=== PATIENT | female | born 1945 | race Caucasian/White ===

== ENCOUNTER 2017-06-01 16:50 | Inpatient (IN) ==
[2017-06-02 04:54] LABS: Basophils # 0.1 K/mcL (0.0-0.2); Eosinophils # 0.3 K/mcL (0.0-0.6); Eosinophils % 3.9 %; Hematocrit 30.7 % (35.3-44.9); Hemoglobin 9.7 g/dL (11.5-15.4); Lymphocytes # 1.5 K/mcL (0.6-4.6); Lymphocytes % 18.5 %; Mean Corpuscular HGB Conc 31.6 g/dL (31.6-35.5); Mean Corpuscular Hemoglobin 25.5 pg (28.0-33.3); Mean Corpuscular Volume 80.8 fL (83.0-100.0); Mean Platelet Volume 10.5 fL (9.4-12.4); Monocytes # 0.8 K/mcL (0.0-1.3); Monocytes % 9.8 %; Neutrophils # 5.3 K/mcL (1.6-8.9); Platelet Count 288 K/mcL (140-400); Red Cell Distribution Width 15.6 % (11.5-14.5); Segmented Neutrophils % 65.8 %
[2017-06-02 04:55] LABS: INR 1.2; Prothrombin Time 12.9 Seconds (9.4-12.1)
[2017-06-02 04:58] LABS: Activated Partial Thrombo Time 25.3 Seconds (26.0-36.0)
[2017-06-02] MEDS: *HR* Enoxaparin 40 MG/0.4 ML SYRINGE SQ SCH (05:01)
[2017-06-02 05:04] LABS: BUN/Creatinine Ratio 23 (6-26); Blood Urea Nitrogen 19 mg/dL (7-20); Carbon Dioxide 24 mEq/L (19-29); Chloride 113 mEq/L (98-109); Glucose 106 mg/dL (70-99); Osmolality,Calculated 301 (280-300); Potassium 3.8 mEq/L (3.5-4.5); Sodium 144 mEq/L (136-145); eGFR For African Americans > 60 (> 60); eGFR For Non-African Americans > 60 (> 60)
[2017-06-02] MEDS: amLODIPine 5 MG TABLET PO SCH (07:56)
[2017-06-02] MEDS: Aspirin Enteric Coated 81 MG Tablet PO SCH (07:56)
[2017-06-02] MEDS: Lisinopril 20 MG TABLET PO SCH (07:57)
[2017-06-03] MEDS: *HR* Enoxaparin 40 MG/0.4 ML SYRINGE SQ SCH (05:10)
[2017-06-03] MEDS: Aspirin Enteric Coated 81 MG Tablet PO SCH (08:37)
[2017-06-03] MEDS: Lisinopril 20 MG TABLET PO SCH (08:37)
[2017-06-03] MEDS: amLODIPine 5 MG TABLET PO SCH (08:37)
--- NOTE | 2017-06-03 13:40 | Internal Med History&Physical ---
Date of Encounter: 06/02/17 Time of Encounter: 13:38 Assessment and Plan (1) Acute CVA (cerebrovascular accident) Current visit: No Status: Acute Internal Medicine - H&P: HPI Chief complaint: Patient had a CVA was transferred here for rehabilitation Admitted From: Hospital to Hospital Transfer Plans for Post Hospital Care: Transfer Detention Care History of present illness: Ms. Quick is a 72 year old female Past Med Surg Social Fam HX - Past Medical History Medical history: no medical history Psychiatric history: no psych history - Past Surgical History Surgical History: cholecystectomy, herniorrhaphy - Social History Smoking Status: Never smoker Smokeless Tobacco Status: No Alcohol use: none Drug use: none Internal Medicine - H&P: Meds Aspirin Enteric Coated [Aspirin EC] 81 mg PO DAILY 06/01/17 [Rx] Atorvastatin [Lipitor] 40 mg PO HS #30 tab 06/01/17 [Rx] Ciprofloxacin [Cipro] 500 mg PO Q12HR #6 tab 06/01/17 [Rx] Docusate [Colace] 100 mg PO BID PRN 06/01/17 [Rx] Lisinopril [Zestril] 20 mg PO DAILY #30 tablet 06/01/17 [Rx] amLODIPine [Norvasc] 10 mg PO DAILY #30 tab 06/01/17 [Rx] 3 Allergy/AdvReac Type Severity Reaction Status Date / Time No Known Allergies Allergy Verified 05/29/17 00:47 All Systems PM: A 10-system review of systems was performed and is negative for pertinent findings except as documented above in the HPI. - Constitutional Vitals: Temp Pulse Resp BP Pulse Ox 98.4 F 81 18 159/85 96 06/03/17 08:00 06/03/17 08:00 06/03/17 08:00 06/03/17 08:00 06/03/17 08:00 - Head Head exam: Present: atraumatic, normal inspection, normocephalic - Neck Neck exam general surgery: Present: supple, trachea midline. Absent: lymphadenopathy - Respiratory Respiratory exam: Present: CTAB. Absent: accessory muscle use, rales, rhonchi, wheezes - Cardiovascular Cardiovascular exam: Present: RRR, +S1, +S2. Absent: diastolic murmur, gallop, rubs, systolic murmur Internal Med - H&P Results - Labs CBC & Chem 7: 06/02/17 04:45 06/02/17 04:45 Labs: Lab was basically stable - VTE Documentation of Mechanical Device: Graduated compression elastic hosiery
--- NOTE | 2017-06-03 13:45 | Internal Med Progress Note ---
Date of Encounter: 06/03/17 Time of Encounter: 13:43 - Assessment and plan (1) Acute CVA (cerebrovascular accident) Current Visit: No Status: Acute Assessment and plan: Working with all modalities of PT OT TR and speech - Time Spent With Patient less than 15 minutes - Subjective Interval history: Asians here for consequences of a CVA rehabilitation. She has some trouble with slow response verbally and does not say very much and she does have some buttocks breakdown that her grandmother have wound care see today - Constitutional Vitals: Temp Pulse Resp BP Pulse Ox 98.4 F 81 18 159/85 96 06/03/17 08:00 06/03/17 08:00 06/03/17 08:00 06/03/17 08:00 06/03/17 08:00 - Head Head exam: Present: atraumatic, normocephalic - Neck Neck exam general surgery: Present: supple, trachea midline. Absent: lymphadenopathy - Respiratory Respiratory exam: Present: CTAB. Absent: accessory muscle use, rales, rhonchi, wheezes - Cardiovascular Cardiovascular exam: Present: RRR, +S1, +S2. Absent: diastolic murmur, gallop, rubs, systolic murmur Internal Medicine: Result - Labs CBC & Chem 7: 06/02/17 04:45 06/02/17 04:45 Labs: Lab noted - ABG Interpretation ABG results: PT/INR, D-dimer PT 12.9 Seconds (9.4-12.1) H 06/02/17 04:45 - VTE Documentation of Mechanical Device: Graduated compression elastic hosiery Consult Discharge Plan - Plan Referrals: NONE,PCP [Primary Care Provider] -
[2017-06-03] MEDS ORDERED: Diphenoxylate/Atropine 1 TAB TABLET PO SCH (21:00)
[2017-06-03] MEDS: Diphenoxylate/Atropine 1 TAB TABLET PO SCH (21:50)
[2017-06-04] MEDS: *HR* Enoxaparin 40 MG/0.4 ML SYRINGE SQ SCH (05:44)
[2017-06-04] MEDS: Diphenoxylate/Atropine 1 TAB TABLET PO SCH ×3 (10:19→20:24)
[2017-06-04] MEDS: Aspirin Enteric Coated 81 MG Tablet PO SCH (10:19)
[2017-06-04] MEDS: Lisinopril 20 MG TABLET PO SCH (10:19)
[2017-06-04] MEDS: amLODIPine 5 MG TABLET PO SCH (10:19)
--- NOTE | 2017-06-04 13:37 | Internal Med Progress Note ---
Date of Encounter: 06/04/17 Time of Encounter: 13:36 - Assessment and plan (1) Acute CVA (cerebrovascular accident) Current Visit: No Status: Acute Assessment and plan: Patient is here for CVA rehabilitation. - Time Spent With Patient less than 15 minutes - Subjective Interval history: Asians here for consequences of a CVA rehabilitation. She has some trouble with slow response verbally and does not say very much and she does have some buttocks breakdown that her grandmother have wound care see today - Constitutional Vitals: Temp Pulse Resp BP Pulse Ox 98.5 F 76 18 144/77 96 06/04/17 07:27 06/04/17 07:27 06/04/17 07:27 06/04/17 07:27 06/04/17 07:27 - Head Head exam: Present: atraumatic, normal inspection, normocephalic - Neck Neck exam general surgery: Present: supple, trachea midline. Absent: lymphadenopathy - Respiratory Respiratory exam: Present: CTAB. Absent: accessory muscle use, rales, rhonchi, wheezes - Cardiovascular Cardiovascular exam: Present: RRR, +S1, +S2. Absent: diastolic murmur, gallop, rubs, systolic murmur Internal Medicine: Result - Labs CBC & Chem 7: 06/02/17 04:45 06/02/17 04:45 Labs: Lab is stable - ABG Interpretation ABG results: PT/INR, D-dimer PT 12.9 Seconds (9.4-12.1) H 06/02/17 04:45 - VTE Documentation of Mechanical Device: Graduated compression elastic hosiery Consult Discharge Plan - Plan Referrals: NONE,PCP [Primary Care Provider] -
[2017-06-05] MEDS: *HR* Enoxaparin 40 MG/0.4 ML SYRINGE SQ SCH (06:08)
[2017-06-05] MEDS: Aspirin Enteric Coated 81 MG Tablet PO SCH (08:31)
[2017-06-05] MEDS: amLODIPine 5 MG TABLET PO SCH (08:31)
[2017-06-05] MEDS: Diphenoxylate/Atropine 1 TAB TABLET PO SCH ×3 (08:31→20:42)
[2017-06-05] MEDS: Lisinopril 20 MG TABLET PO SCH (08:31)
--- NOTE | 2017-06-05 08:40 | Internal Med Progress Note ---
Date of Encounter: 06/05/17 Time of Encounter: 08:37 - Assessment and plan (1) Acute CVA (cerebrovascular accident) Current Visit: No Status: Acute Assessment and plan: Rt hemispheric stroke Ischemic ,affecting left side, dysarthia , Stable IN rehab (2) UTI (urinary tract infection) Current Visit: No Status: Acute Assessment and plan: on cipro continue present medications Qualifiers: Urinary tract infection type: acute cystitis Hematuria presence: with hematuria Qualified Code(s): N30.01 - Acute cystitis with hematuria (3) Hypertension Current Visit: No Status: Chronic Assessment and plan: stable on meds continue as before Qualifiers: Hypertension type: unspecified Qualified Code(s): I10 - Essential (primary ) hypertension - Subjective Interval history: No acute issues , Eating her breakfast denied any acute complains Seen for the first time cross coverage - Constitutional Vitals: Temp Pulse Resp BP Pulse Ox 98.2 F 75 18 126/72 95 06/05/17 07:47 06/05/17 07:47 06/05/17 07:47 06/05/17 07:47 06/05/17 07:47 - Head Head exam: Present: atraumatic - Eye Eye exam: Present: PERRL. Absent: scleral icterus, conjuntiva pink - Neck Neck exam general surgery: Present: supple. Absent: tenderness, nuchal rigidity - Respiratory Respiratory exam: Present: CTAB. Absent: chest wall tenderness, respiratory distress, rhonchi, wheezes - Cardiovascular Cardiovascular exam: Present: RRR, +S1, +S2. Absent: irregular rhythm, JVD, systolic murmur, tachycardia - GI/Abdominal GI/Abdominal exam: Present: normal bowel sounds, soft. Absent: rebound, rigid Additional comments: obese and soft no supra pubic pain - Extremities Exam Extremities exam: Absent: pedal edema, tenderness, warm - Neurological Exam Neurological exam: Present: alert, oriented X3, facial droop Additional comments: wekaness on the left side , Dysarthia difficulty in finding words Internal Medicine: Result - Labs CBC & Chem 7: 06/02/17 04:45 06/02/17 04:45 - ABG Interpretation ABG results: PT/INR, D-dimer PT 12.9 Seconds (9.4-12.1) H 06/02/17 04:45 - VTE Documentation of Mechanical Device: Graduated compression elastic hosiery Consult Discharge Plan - Plan Referrals: NONE,PCP [Primary Care Provider] -
[2017-06-06] MEDS: *HR* Enoxaparin 40 MG/0.4 ML SYRINGE SQ SCH (05:08)
--- NOTE | 2017-06-06 08:09 | Internal Med Progress Note ---
Date of Encounter: 06/06/17 Time of Encounter: 08:06 - Assessment and plan (1) Acute CVA (cerebrovascular accident) Current Visit: No Status: Acute Assessment and plan: Stable No new change In Rehab needs help on feeding Some expressive aphasia (2) UTI (urinary tract infection) Current Visit: No Status: Acute Assessment and plan: on antibiotics Stable Qualifiers: Urinary tract infection type: acute cystitis Hematuria presence: with hematuria Qualified Code(s): N30.01 - Acute cystitis with hematuria (3) Hypertension Current Visit: No Status: Chronic Assessment and plan: stable no change in meds Qualifiers: Hypertension type: unspecified Qualified Code(s): I10 - Essential (primary ) hypertension (4) Anemia Current Visit: Yes Status: Chronic Assessment and plan: H?H low , Workup started , Labs ordered , empirically Iron started Qualifiers: Anemia type: unspecified type Qualified Code(s): D64.9 - Anemia, unspecified - Subjective Interval history: doing fine slept oK answers simple questions some aphasia . No acute distress . - Constitutional Vitals: Temp Pulse Resp BP Pulse Ox 97.9 F 80 18 144/70 97 06/06/17 07:47 06/06/17 07:47 06/06/17 07:47 06/06/17 07:47 06/06/17 07:47 General appearance: Present: pleasant, obese. Absent: no acute distress, severe distress - Head Head exam: Present: atraumatic - Eye Eye exam: Present: EOMI, PERRL. Absent: scleral icterus - Neck Neck exam general surgery: Present: supple. Absent: tenderness, nuchal rigidity - Respiratory Respiratory exam: Present: CTAB. Absent: chest wall tenderness, rhonchi, wheezes, tachypnea - Cardiovascular Cardiovascular exam: Present: RRR, +S1, +S2. Absent: irregular rhythm, JVD, tachycardia - GI/Abdominal GI/Abdominal exam: Present: normal bowel sounds, soft. Absent: distended, guarding, rebound, rigid - Neurological Exam Neurological exam: Present: alert, facial droop, speech deficit. Absent: no focal deficits Additional comments: Neuro examination as before .No change Internal Medicine: Result - Labs CBC & Chem 7: 06/02/17 04:45 06/02/17 04:45 - ABG Interpretation ABG results: PT/INR, D-dimer PT 12.9 Seconds (9.4-12.1) H 06/02/17 04:45 - VTE Documentation of Mechanical Device: Graduated compression elastic hosiery Consult Discharge Plan - Plan Referrals: NONE,PCP [Primary Care Provider] -
[2017-06-06] MEDS: Aspirin Enteric Coated 81 MG Tablet PO SCH (09:03)
[2017-06-06] MEDS: Diphenoxylate/Atropine 1 TAB TABLET PO SCH ×3 (09:03→20:12)
[2017-06-06] MEDS: amLODIPine 5 MG TABLET PO SCH (09:03)
[2017-06-06] MEDS: Lisinopril 20 MG TABLET PO SCH (09:03)
[2017-06-07] MEDS: *HR* Enoxaparin 40 MG/0.4 ML SYRINGE SQ SCH (05:30)
[2017-06-07 05:56] LABS: Basophils # 0.1 K/mcL (0.0-0.2); Basophils % 1.3 %; Eosinophils # 0.2 K/mcL (0.0-0.6); Eosinophils % 3.7 %; Hematocrit 29.5 % (35.3-44.9); Hemoglobin 9.3 g/dL (11.5-15.4); Immature Granulocytes % 1.1 % (0-4); Lymphocytes # 1.2 K/mcL (0.6-4.6); Lymphocytes % 18.3 %; Mean Corpuscular HGB Conc 31.5 g/dL (31.6-35.5); Mean Corpuscular Hemoglobin 25.8 pg (28.0-33.3); Mean Corpuscular Volume 81.9 fL (83.0-100.0); Mean Platelet Volume 10.6 fL (9.4-12.4); Monocytes # 0.6 K/mcL (0.0-1.3); Monocytes % 8.9 %; Neutrophils # 4.2 K/mcL (1.6-8.9); Platelet Count 312 K/mcL (140-400); Red Cell Distribution Width 15.6 % (11.5-14.5); Segmented Neutrophils % 66.7 %
[2017-06-07 06:09] LABS: BUN/Creatinine Ratio 21 (6-26); Blood Urea Nitrogen 18 mg/dL (7-20); Calcium 8.9 mg/dL (8.6-10.8); Carbon Dioxide 28 mEq/L (19-29); Chloride 108 mEq/L (98-109); Glucose 105 mg/dL (70-99); Osmolality,Calculated 296 (280-300); Potassium 4.3 mEq/L (3.5-4.5); Sodium 142 mEq/L (136-145); eGFR For African Americans > 60 (> 60); eGFR For Non-African Americans > 60 (> 60)
[2017-06-07] MEDS: Aspirin Enteric Coated 81 MG Tablet PO SCH (10:08)
[2017-06-07] MEDS: Diphenoxylate/Atropine 1 TAB TABLET PO SCH ×3 (10:08→22:25)
[2017-06-07] MEDS: amLODIPine 5 MG TABLET PO SCH (10:08)
[2017-06-07] MEDS: Lisinopril 20 MG TABLET PO SCH (10:08)
[2017-06-07 10:17] LABS: % Iron Saturation 8 % (15-50); Iron 29 mcg/dL (50-170); Transferrin 253 mg/dL (180-382)
--- NOTE | 2017-06-07 14:32 | Internal Med Progress Note ---
Date of Encounter: 06/07/17 Time of Encounter: 14:30 - Assessment and plan (1) Acute CVA (cerebrovascular accident) Current Visit: No Status: Acute Assessment and plan: CAMMY Sharp is here for rehabilitation. - Time Spent With Patient less than 15 minutes - Subjective Interval history: Patient's cooperating with PT OT TR and speech. She still minimally nonverbal. She seems to have real trouble motor initiation. He PTOT TR and speech notes. She was in the upright device today - Constitutional Vitals: Temp Pulse Resp BP Pulse Ox 99.1 F 75 16 139/66 95 06/07/17 06:54 06/07/17 06:54 06/07/17 06:54 06/07/17 06:54 06/07/17 06:54 General appearance: Present: pleasant, obese. Absent: no acute distress, severe distress - Head Head exam: Present: atraumatic, normocephalic - Respiratory Respiratory exam: Present: CTAB. Absent: accessory muscle use, rales, rhonchi, wheezes - Cardiovascular Cardiovascular exam: Present: RRR, +S1, +S2. Absent: diastolic murmur, gallop, rubs, systolic murmur - Skin Skin exam: Present: excoriation (Wound care seeing patient for the lesions or her buttocks. Return to keep her off them as much as possible) Internal Medicine: Result - Labs CBC & Chem 7: 06/07/17 05:45 06/07/17 05:45 Labs: Short CBC 06/07/17 Range/Units 05:45 WBC 6.3 (4.3-11.1) K/mcL Hgb 9.3 L (11.5-15.4) g/dL Hct 29.5 L (35.3-44.9) % Plt Count 312 (140-400) K/mcL Neutrophils # 4.2 (1.6-8.9) K/mcL BMP 06/07/17 05:45 Sodium 142 Potassium 4.3 Chloride 108 Carbon Dioxide 28 BUN 18 Creatinine 0.84 Glucose 105 H Calcium 8.9 Lab is stable - ABG Interpretation ABG results: PT/INR, D-dimer PT 12.9 Seconds (9.4-12.1) H 06/02/17 04:45 - VTE Documentation of Mechanical Device: Graduated compression elastic hosiery Consult Discharge Plan - Plan Referrals: NONE,PCP [Primary Care Provider] -
[2017-06-07] MEDS: Acetaminophen 325 MG TABLET PO PRN (22:25)
[2017-06-08] MEDS: *HR* Enoxaparin 40 MG/0.4 ML SYRINGE SQ SCH (05:11)
[2017-06-08] MEDS: Aspirin Enteric Coated 81 MG Tablet PO SCH (09:50)
[2017-06-08] MEDS: Diphenoxylate/Atropine 1 TAB TABLET PO SCH ×3 (09:50→23:13)
[2017-06-08] MEDS: Lisinopril 20 MG TABLET PO SCH (09:50)
[2017-06-08] MEDS: amLODIPine 5 MG TABLET PO SCH (09:50)
--- NOTE | 2017-06-08 13:09 | Internal Med Progress Note ---
Date of Encounter: 06/08/17 Time of Encounter: 13:07 - Assessment and plan (1) Acute CVA (cerebrovascular accident) Current Visit: Yes Status: Acute Assessment and plan: Patient's saying PT OT TR and speech. Before meals note - Time Spent With Patient less than 15 minutes - Subjective Interval history: Patient's cooperating with PT OT TR and speech. She still minimally nonverbal. She seems to have real trouble motor initiation. He PTOT TR and speech notes. She was in the upright device today. Please see PT OT TR and speech. Patient was in the upright for 20 minutes today - Constitutional Vitals: Temp Pulse Resp BP Pulse Ox 97.9 F 78 16 130/80 96 06/08/17 07:27 06/08/17 07:27 06/08/17 07:27 06/08/17 07:27 06/08/17 07:27 General appearance: Present: pleasant, obese. Absent: no acute distress, severe distress - Head Head exam: Present: atraumatic, normal inspection, normocephalic - Neck Neck exam general surgery: Present: supple, trachea midline. Absent: lymphadenopathy - Respiratory Respiratory exam: Present: CTAB. Absent: accessory muscle use, rales, rhonchi, wheezes - Cardiovascular Cardiovascular exam: Present: RRR, +S1, +S2. Absent: diastolic murmur, gallop, rubs, systolic murmur Internal Medicine: Result - Labs CBC & Chem 7: 06/07/17 05:45 06/07/17 05:45 Labs: Labs stable - ABG Interpretation ABG results: PT/INR, D-dimer PT 12.9 Seconds (9.4-12.1) H 06/02/17 04:45 - VTE Documentation of Mechanical Device: Graduated compression elastic hosiery Consult Discharge Plan - Plan Referrals: NONE,PCP [Primary Care Provider] -
[2017-06-09] MEDS: *HR* Enoxaparin 40 MG/0.4 ML SYRINGE SQ SCH (05:57)
[2017-06-09] MEDS: Acetaminophen 325 MG TABLET PO PRN (08:44)
[2017-06-09] MEDS: Diphenoxylate/Atropine 1 TAB TABLET PO SCH ×3 (08:44→20:00)
[2017-06-09] MEDS: Lisinopril 20 MG TABLET PO SCH (08:44)
[2017-06-09] MEDS: amLODIPine 5 MG TABLET PO SCH (08:44)
[2017-06-09] MEDS: Aspirin Enteric Coated 81 MG Tablet PO SCH (08:45)
--- NOTE | 2017-06-09 15:13 | Internal Med Progress Note ---
Date of Encounter: 06/09/17 Time of Encounter: 15:11 - Assessment and plan (1) Acute CVA (cerebrovascular accident) Current Visit: Yes Status: Acute Assessment and plan: Patient had a CVA. She is showing improvement though. She even answered me today. - Time Spent With Patient less than 15 minutes - Subjective Interval history: Patient's cooperating with PT OT TR and speech. She still minimally nonverbal. She seems to have real trouble motor initiation. He PTOT TR and speech notes. She was in the upright device today. Please see PT OT TR and speech. Patient was in the upright for 20 minutes today - Constitutional Vitals: Temp Pulse Resp BP Pulse Ox 98.4 F 72 16 122/77 96 06/09/17 07:00 06/09/17 07:00 06/09/17 07:00 06/09/17 07:00 06/09/17 07:00 General appearance: Present: pleasant, obese. Absent: no acute distress, severe distress - Head Head exam: Present: atraumatic, normal inspection, normocephalic - Neck Neck exam general surgery: Present: supple, trachea midline. Absent: lymphadenopathy - Respiratory Respiratory exam: Present: CTAB. Absent: accessory muscle use, rales, rhonchi, wheezes - Cardiovascular Cardiovascular exam: Present: RRR, +S1, +S2. Absent: diastolic murmur, gallop, rubs, systolic murmur Internal Medicine: Result - Labs CBC & Chem 7: 06/07/17 05:45 06/07/17 05:45 Labs: Lab is stable - ABG Interpretation ABG results: PT/INR, D-dimer PT 12.9 Seconds (9.4-12.1) H 06/02/17 04:45 - VTE Documentation of Mechanical Device: Graduated compression elastic hosiery Consult Discharge Plan - Plan Referrals: NONE,PCP [Primary Care Provider] -
[2017-06-10] MEDS: *HR* Enoxaparin 40 MG/0.4 ML SYRINGE SQ SCH (05:23)
[2017-06-10] MEDS: amLODIPine 5 MG TABLET PO SCH (07:49)
[2017-06-10] MEDS: Lisinopril 20 MG TABLET PO SCH (07:49)
[2017-06-10] MEDS: Aspirin Enteric Coated 81 MG Tablet PO SCH (07:50)
[2017-06-10] MEDS: Diphenoxylate/Atropine 1 TAB TABLET PO SCH (07:50)
--- NOTE | 2017-06-10 13:27 | Internal Med Progress Note ---
Date of Encounter: 06/10/17 Time of Encounter: 13:25 - Assessment and plan (1) Acute CVA (cerebrovascular accident) Current Visit: Yes Status: Acute Assessment and plan: Patient's here for CVA is getting all modalities of rehabilitation including PT OT TR and speech. - Time Spent With Patient less than 15 minutes - Subjective Interval history: Being seen by wound care and showing progress and she is more verbal now and is responding better. - Constitutional Vitals: Temp Pulse Resp BP Pulse Ox 97.9 F 77 16 141/74 96 06/10/17 06:32 06/10/17 06:32 06/10/17 06:32 06/10/17 06:32 06/10/17 06:32 General appearance: Present: pleasant, obese. Absent: no acute distress, severe distress - Head Head exam: Present: atraumatic, normal inspection, normocephalic - Neck Neck exam general surgery: Present: supple, trachea midline. Absent: lymphadenopathy - Respiratory Respiratory exam: Present: CTAB. Absent: accessory muscle use, rales, rhonchi, wheezes - Cardiovascular Cardiovascular exam: Present: RRR, +S1, +S2. Absent: diastolic murmur, gallop, rubs, systolic murmur Internal Medicine: Result - Labs CBC & Chem 7: 06/07/17 05:45 06/07/17 05:45 Labs: Lab is stable - ABG Interpretation ABG results: PT/INR, D-dimer PT 12.9 Seconds (9.4-12.1) H 06/02/17 04:45 - VTE Documentation of Mechanical Device: Graduated compression elastic hosiery Consult Discharge Plan - Plan Referrals: NONE,PCP [Primary Care Provider] -
[2017-06-10] MEDS ORDERED: Diphenoxylate/Atropine 1 TAB TABLET PO PRN (13:36)
[2017-06-11] MEDS: *HR* Enoxaparin 40 MG/0.4 ML SYRINGE SQ SCH (04:49)
[2017-06-11] MEDS: amLODIPine 5 MG TABLET PO SCH (10:24)
[2017-06-11] MEDS: Lisinopril 20 MG TABLET PO SCH (10:25)
[2017-06-11] MEDS: Aspirin Enteric Coated 81 MG Tablet PO SCH (10:25)
[2017-06-11] MEDS: Acetaminophen 325 MG TABLET PO PRN (10:25)
--- NOTE | 2017-06-11 13:43 | Internal Med Progress Note ---
Date of Encounter: 06/11/17 Time of Encounter: 13:41 - Assessment and plan (1) Acute CVA (cerebrovascular accident) Current Visit: Yes Status: Acute Assessment and plan: Agents being treated for CVA here with PT OT TR to be - Time Spent With Patient less than 15 minutes - Subjective Interval history: Being seen by wound care and showing progress and she is more verbal now and is responding better. Continuing to improve and is much more verbal doubt the staff - Constitutional Vitals: Temp Pulse Resp BP Pulse Ox 97.7 F 81 16 149/67 99 06/11/17 06:57 06/11/17 06:57 06/11/17 06:57 06/11/17 06:57 06/11/17 06:57 General appearance: Present: pleasant, obese. Absent: no acute distress, severe distress - Head Head exam: Present: atraumatic, normal inspection, normocephalic - Neck Neck exam general surgery: Present: supple, trachea midline. Absent: lymphadenopathy - Respiratory Respiratory exam: Present: CTAB. Absent: accessory muscle use, rales, rhonchi, wheezes - Cardiovascular Cardiovascular exam: Present: RRR, +S1, +S2. Absent: diastolic murmur, gallop, rubs, systolic murmur Internal Medicine: Result - Labs CBC & Chem 7: 06/07/17 05:45 06/07/17 05:45 Labs: Lab is stable - ABG Interpretation ABG results: PT/INR, D-dimer PT 12.9 Seconds (9.4-12.1) H 06/02/17 04:45 - VTE Documentation of Mechanical Device: Graduated compression elastic hosiery Consult Discharge Plan - Plan Referrals: NONE,PCP [Primary Care Provider] -
[2017-06-12] MEDS: *HR* Enoxaparin 40 MG/0.4 ML SYRINGE SQ SCH (06:47)
[2017-06-12] MEDS: Aspirin Enteric Coated 81 MG Tablet PO SCH (09:44)
[2017-06-12] MEDS: amLODIPine 5 MG TABLET PO SCH (09:44)
[2017-06-12] MEDS: Lisinopril 20 MG TABLET PO SCH (09:44)
--- NOTE | 2017-06-12 15:26 | Internal Med Progress Note ---
Date of Encounter: 06/12/17 Time of Encounter: 14:25 - Assessment and plan (1) Acute CVA (cerebrovascular accident) Current Visit: Yes Status: Acute Assessment and plan: Continue to work with therapists. - Time Spent With Patient 25 - 35 minutes - Subjective Interval history: - Feeling okay. - Working with therapists. - Constitutional Vitals: Temp Pulse Resp BP Pulse Ox 98.5 F 77 18 151/80 93 06/12/17 07:55 06/12/17 07:55 06/12/17 07:55 06/12/17 07:55 06/12/17 07:55 General appearance: Present: pleasant, obese. Absent: no acute distress, severe distress Exam: Gen: A&Ox3, NAD. Morbidly obese. HEENT: NCAT. Neck: No palpable lymphadenopathy or thyromegaly. CV: RRR, S1S2. No murmur. Capillary refill < 2 seconds. Pulm: CTAB. Abd: (+)BS. NDNT. Neuro: LUE and LLE weakness noted, LLE weakness > LUE weakness. Skin: No rash. Ext: No pitting edema. Internal Medicine: Result - Labs CBC & Chem 7: 06/07/17 05:45 06/07/17 05:45 - ABG Interpretation ABG results: PT/INR, D-dimer PT 12.9 Seconds (9.4-12.1) H 06/02/17 04:45 - VTE Documentation of Mechanical Device: Graduated compression elastic hosiery Consult Discharge Plan - Plan Referrals: NONE,PCP [Primary Care Provider] -
[2017-06-13] MEDS: *HR* Enoxaparin 40 MG/0.4 ML SYRINGE SQ SCH (06:01)
[2017-06-13] MEDS: amLODIPine 5 MG TABLET PO SCH (09:42)
[2017-06-13] MEDS: Aspirin Enteric Coated 81 MG Tablet PO SCH (09:42)
[2017-06-13] MEDS: Lisinopril 20 MG TABLET PO SCH (09:42)
[2017-06-13] MEDS: Acetaminophen 325 MG TABLET PO PRN (09:42)
--- NOTE | 2017-06-13 12:47 | Internal Med Progress Note ---
Date of Encounter: 06/13/17 Time of Encounter: 12:35 - Assessment and plan (1) Acute CVA (cerebrovascular accident) Current Visit: Yes Status: Acute Assessment and plan: Continue to work with therapists. (2) Pain and swelling of right lower leg Current Visit: Yes Status: Acute Assessment and plan: Venous U/S of RLE ordered, will need to f/u. - Time Spent With Patient less than 15 minutes - Subjective Interval history: - Feeling "okay." - Working with therapists. - Constitutional Vitals: Temp Pulse Resp BP Pulse Ox 98.2 F 74 14 140/80 96 06/13/17 07:00 06/13/17 07:00 06/13/17 07:00 06/13/17 07:00 06/13/17 07:00 General appearance: Present: pleasant, obese. Absent: no acute distress, severe distress Exam: Gen: A&Ox3, NAD. Morbidly obese. HEENT: NCAT. Neck: No palpable lymphadenopathy or thyromegaly. CV: RRR, S1S2. No murmur. Capillary refill < 2 seconds. Pulm: CTAB. Abd: (+)BS. NDNT. Neuro: LUE and LLE weakness noted, LLE weakness > LUE weakness. Skin: No rash. Ext: No pitting edema, but RLE swelling noted, with mild palpable tenderness over the swelling. Internal Medicine: Result - Labs CBC & Chem 7: 06/07/17 05:45 06/07/17 05:45 - ABG Interpretation ABG results: PT/INR, D-dimer PT 12.9 Seconds (9.4-12.1) H 06/02/17 04:45 - VTE Documentation of Mechanical Device: Graduated compression elastic hosiery Consult Discharge Plan - Plan Referrals: NONE,PCP [Primary Care Provider] -
[2017-06-14] MEDS: *HR* Enoxaparin 40 MG/0.4 ML SYRINGE SQ SCH (05:22)
[2017-06-14 06:21] LABS: BUN/Creatinine Ratio 22 (6-26); Blood Urea Nitrogen 19 mg/dL (7-20); Calcium 9.6 mg/dL (8.6-10.8); Carbon Dioxide 27 mEq/L (19-29); Chloride 107 mEq/L (98-109); Glucose 106 mg/dL (70-99); Osmolality,Calculated 295 (280-300); Potassium 4.1 mEq/L (3.5-4.5); Sodium 141 mEq/L (136-145); eGFR For African Americans > 60 (> 60); eGFR For Non-African Americans > 60 (> 60)
[2017-06-14 07:07] LABS: Basophils # 0.1 K/mcL (0.0-0.2); Basophils % 1.4 %; Eosinophils # 0.3 K/mcL (0.0-0.6); Eosinophils % 4.2 %; Hematocrit 35.5 % (35.3-44.9); Immature Granulocytes % 0.7 % (0-4); Lymphocytes # 1.8 K/mcL (0.6-4.6); Lymphocytes % 24.8 %; Mean Corpuscular Hemoglobin 25.1 pg (28.0-33.3); Mean Corpuscular Volume 81.1 fL (83.0-100.0); Mean Platelet Volume 10.4 fL (9.4-12.4); Monocytes # 0.7 K/mcL (0.0-1.3); Monocytes % 9.7 %; Neutrophils # 4.4 K/mcL (1.6-8.9); Platelet Count 441 K/mcL (140-400); Red Blood Count 4.38 M/mcL (3.82-4.97); Red Cell Distribution Width 17.6 % (11.5-14.5); Segmented Neutrophils % 59.2 %
[2017-06-14] MEDS: Lisinopril 20 MG TABLET PO SCH (08:40)
[2017-06-14] MEDS: Aspirin Enteric Coated 81 MG Tablet PO SCH (08:40)
[2017-06-14] MEDS: amLODIPine 5 MG TABLET PO SCH (08:40)
--- NOTE | 2017-06-14 13:56 | Internal Med Progress Note ---
Date of Encounter: 06/14/17 - Assessment and plan (1) Acute CVA (cerebrovascular accident) Current Visit: Yes Status: Acute Assessment and plan: Status CVA she is still not standing or walking. Her speech is slowly increased though and she cannot find her words little easier please see the note - Time Spent With Patient less than 15 minutes - Subjective Interval history: Being seen by wound care and showing progress and she is more verbal now and is responding better. Continuing to improve and is much more verbal doubt the staff - Constitutional Vitals: Temp Pulse Resp BP Pulse Ox 98.2 F 82 16 131/79 93 06/14/17 07:00 06/14/17 07:00 06/14/17 07:00 06/14/17 07:00 06/14/17 07:00 General appearance: Present: pleasant, obese. Absent: no acute distress, severe distress - Head Head exam: Present: atraumatic, normal inspection, normocephalic - Neck Neck exam general surgery: Present: supple, trachea midline. Absent: lymphadenopathy - Respiratory Respiratory exam: Present: CTAB. Absent: accessory muscle use, rales, rhonchi, wheezes - Cardiovascular Cardiovascular exam: Present: RRR, +S1, +S2. Absent: diastolic murmur, gallop, rubs, systolic murmur Internal Medicine: Result - Labs CBC & Chem 7: 06/14/17 05:15 06/14/17 05:15 Labs: Short CBC 06/14/17 Range/Units 05:15 WBC 7.4 (4.3-11.1) K/mcL Hgb 11.0 L D (11.5-15.4) g/dL Hct 35.5 (35.3-44.9) % Plt Count 441 H (140-400) K/mcL Neutrophils # 4.4 (1.6-8.9) K/mcL BMP 06/14/17 05:15 Sodium 141 Potassium 4.1 Chloride 107 Carbon Dioxide 27 BUN 19 Creatinine 0.87 Glucose 106 H Calcium 9.6 Laboratory is to be stable - ABG Interpretation ABG results: PT/INR, D-dimer PT 12.9 Seconds (9.4-12.1) H 06/02/17 04:45 - VTE Documentation of Mechanical Device: Graduated compression elastic hosiery Consult Discharge Plan - Plan Referrals: NONE,PCP [Primary Care Provider] -
[2017-06-14] MEDS: Acetaminophen 325 MG TABLET PO PRN (22:32)
--- NOTE | 2017-06-14 22:43 | Venous Imaging Report ---
LE Venous Duplex Patient Name:Lila Quick Order Number:[id number] Procedure Date:06/14/2017 Date:1945ge:72 yrs Gender:Female Location:[facility] Room #: 107 [employer] Operator:Veronica Wong RVT Referring MD:Dirk Bourgeois MD Reading MD:Adrian Weir MD , FACS Primary Indications:right leg swelling, evaluate for DVT Secondary Indications: Risk Factors Yes/No Hx of DVT No Hx of Chemotherapy No Impressions: Right lower extremity: normal superficial and deep exam. Left lower extremity: normal contralateral exam. Recommendations: Critical findings reported to Nurse in person by Veronica Wong RVT. Findings Venous Duplex Results: Right: Venous imaging of the lower extremity reveals full patency and normal vessel compressibility of the right distal iliac, right common femoral, right superficial femoral, right popliteal, right posterior tibial, right peroneal, right great saphenous and right lesser saphenous. Doppler signals in the evaluated veins were normal. Left: Venous imaging of the lower extremity reveals full patency and normal vessel compressibility of the left common femoral. Doppler signals in the evaluated veins were normal. Prior Study: No prior study available for comparison. Lower Extremity Venous Duplex Side Vein Compress Spontaneous Flow Augment Diameter (cm) Depth (cm) Right Distal Iliac Normal Yes Phasic Yes Right Common Femoral Normal Yes Phasic Yes Right Superficial Femoral Normal Yes Phasic Yes Right Popliteal Normal Yes Phasic Yes Right Posterior Tibial Normal Yes Phasic Yes Right Peroneal Normal Yes Phasic Yes Right Great Saphenous Normal Yes Phasic Yes Right Lesser Saphenous Normal Yes Phasic Yes Left Common Femoral Normal Yes Phasic Yes Updated by Adrian Weir MD, FACS on 06/14/2017 10:36:03 PM Adrian Weir MD electronically signed on 06/14/2017 10:36:22 PM with status of Final
[2017-06-15] MEDS: *HR* Enoxaparin 40 MG/0.4 ML SYRINGE SQ SCH (05:56)
[2017-06-15] MEDS: amLODIPine 5 MG TABLET PO SCH (08:02)
[2017-06-15] MEDS: Lisinopril 20 MG TABLET PO SCH (08:03)
[2017-06-15] MEDS: Aspirin Enteric Coated 81 MG Tablet PO SCH (08:03)
--- NOTE | 2017-06-15 13:05 | Internal Med Progress Note ---
Date of Encounter: 06/15/17 Time of Encounter: 13:04 - Assessment and plan (1) Acute CVA (cerebrovascular accident) Current Visit: Yes Status: Acute Assessment and plan: Patient has ischemic CVA and is working with all modalities of therapy - Time Spent With Patient less than 15 minutes - Subjective Interval history: Staff is trying keep patient off her buttocks as much as possible. She is working with PT OT TR and speech. She is more verbal - Constitutional Vitals: Temp Pulse Resp BP Pulse Ox 98.2 F 73 16 126/67 95 06/15/17 07:00 06/15/17 07:00 06/15/17 07:00 06/15/17 07:00 06/15/17 07:00 General appearance: Present: pleasant, obese. Absent: no acute distress, severe distress - Head Head exam: Present: atraumatic, normal inspection, normocephalic - Neck Neck exam general surgery: Present: supple, trachea midline. Absent: lymphadenopathy - Respiratory Respiratory exam: Present: CTAB. Absent: accessory muscle use, rales, rhonchi, wheezes - Cardiovascular Cardiovascular exam: Present: RRR, +S1, +S2. Absent: diastolic murmur, gallop, rubs, systolic murmur Internal Medicine: Result - Labs CBC & Chem 7: 06/14/17 05:15 06/14/17 05:15 Labs: Lab is okay - ABG Interpretation ABG results: PT/INR, D-dimer PT 12.9 Seconds (9.4-12.1) H 06/02/17 04:45 - VTE Documentation of Mechanical Device: Graduated compression elastic hosiery Consult Discharge Plan - Plan Referrals: NONE,PCP [Primary Care Provider] -
[2017-06-15] MEDS: Acetaminophen 325 MG TABLET PO PRN (21:45)
[2017-06-16] MEDS: *HR* Enoxaparin 40 MG/0.4 ML SYRINGE SQ SCH (05:38)
[2017-06-16] MEDS: Aspirin Enteric Coated 81 MG Tablet PO SCH (08:11)
[2017-06-16] MEDS: Lisinopril 20 MG TABLET PO SCH (08:12)
[2017-06-16] MEDS: amLODIPine 5 MG TABLET PO SCH (08:12)
--- NOTE | 2017-06-16 15:27 | Internal Med Progress Note ---
Date of Encounter: 06/16/17 Time of Encounter: 15:25 - Assessment and plan (1) Acute CVA (cerebrovascular accident) Current Visit: Yes Status: Acute Assessment and plan: Patient's here for CVA still not ambulating. Need to continue to work with her. But her speech is slowly improving her initiation is improving - Time Spent With Patient less than 15 minutes - Subjective Interval history: Staff is trying keep patient off her buttocks as much as possible. She is working with PT OT TR and speech. She is more verbal> patient continues to improve and her speech patterns and responsiveness but still is not able to bear weight and ambulate - Constitutional Vitals: Temp Pulse Resp BP Pulse Ox 97.8 F 75 16 115/62 95 06/16/17 07:00 06/16/17 07:00 06/16/17 07:00 06/16/17 07:00 06/16/17 07:00 General appearance: Present: pleasant, obese. Absent: no acute distress, severe distress - Head Head exam: Present: atraumatic, normal inspection, normocephalic - Neck Neck exam general surgery: Present: supple, trachea midline. Absent: lymphadenopathy - Respiratory Respiratory exam: Present: CTAB. Absent: accessory muscle use, rales, rhonchi, wheezes - Cardiovascular Cardiovascular exam: Present: RRR, +S1, +S2. Absent: diastolic murmur, gallop, rubs, systolic murmur - Skin Skin exam: Present: dry, erythema (Physician needs to see biotics at the next time the wound care people change dressing), excoriation, intact Internal Medicine: Result - Labs CBC & Chem 7: 06/14/17 05:15 06/14/17 05:15 Labs: Lab is stable - ABG Interpretation ABG results: PT/INR, D-dimer PT 12.9 Seconds (9.4-12.1) H 06/02/17 04:45 - VTE Documentation of Mechanical Device: Graduated compression elastic hosiery Consult Discharge Plan - Plan Referrals: NONE,PCP [Primary Care Provider] -
[2017-06-17] MEDS: *HR* Enoxaparin 40 MG/0.4 ML SYRINGE SQ SCH (05:45)
[2017-06-17] MEDS: Lisinopril 20 MG TABLET PO SCH (08:26)
[2017-06-17] MEDS: Aspirin Enteric Coated 81 MG Tablet PO SCH (08:26)
[2017-06-17] MEDS: amLODIPine 5 MG TABLET PO SCH (08:26)
--- NOTE | 2017-06-17 19:03 | Internal Med Progress Note ---
Date of Encounter: 06/17/17 Time of Encounter: 19:01 - Assessment and plan (1) Acute CVA (cerebrovascular accident) Current Visit: Yes Status: Acute Assessment and plan: no new change doing fine and in PT (2) UTI (urinary tract infection) Current Visit: No Status: Acute Assessment and plan: On cipro Afebrile Qualifiers: Urinary tract infection type: acute cystitis Hematuria presence: with hematuria Qualified Code(s): N30.01 - Acute cystitis with hematuria (3) Hypertension Current Visit: No Status: Chronic Assessment and plan: stable Qualifiers: Hypertension type: unspecified Qualified Code(s): I10 - Essential (primary ) hypertension (4) Anemia Current Visit: Yes Status: Chronic Assessment and plan: no new change h/h stable Qualifiers: Anemia type: unspecified type Qualified Code(s): D64.9 - Anemia, unspecified - Subjective Interval history: No new complains doing fine improving slowly still avoids and ignores right side - Constitutional Vitals: Temp Pulse Resp BP Pulse Ox 98.7 F 79 18 142/82 95 06/17/17 07:00 06/17/17 07:00 06/17/17 07:00 06/17/17 07:00 06/17/17 07:00 General appearance: Present: pleasant, obese. Absent: no acute distress, severe distress - Head Head exam: Present: atraumatic - Neck Neck exam general surgery: Present: full ROM, supple. Absent: tenderness - Respiratory Respiratory exam: Present: CTAB. Absent: chest wall tenderness, respiratory distress, rhonchi, stridor, wheezes - Cardiovascular Cardiovascular exam: Present: RRR, +S1, +S2. Absent: JVD - GI/Abdominal GI/Abdominal exam: Present: normal bowel sounds, soft. Absent: distended, guarding, rebound, rigid - Neurological Exam Additional comments: No new change . weakness as before Internal Medicine: Result - Labs CBC & Chem 7: 06/14/17 05:15 06/14/17 05:15 Labs: stable - ABG Interpretation ABG results: PT/INR, D-dimer PT 12.9 Seconds (9.4-12.1) H 06/02/17 04:45 - VTE Documentation of Mechanical Device: Graduated compression elastic hosiery Consult Discharge Plan - Plan Referrals: NONE,PCP [Primary Care Provider] -
[2017-06-18] MEDS: *HR* Enoxaparin 40 MG/0.4 ML SYRINGE SQ SCH (06:23)
[2017-06-18] MEDS: Aspirin Enteric Coated 81 MG Tablet PO SCH (09:37)
[2017-06-18] MEDS: amLODIPine 5 MG TABLET PO SCH (09:37)
[2017-06-18] MEDS: Lisinopril 20 MG TABLET PO SCH (09:37)
--- NOTE | 2017-06-18 17:15 | Internal Med Progress Note ---
Date of Encounter: 06/18/17 Time of Encounter: 17:13 - Assessment and plan (1) Acute CVA (cerebrovascular accident) Current Visit: Yes Status: Acute Assessment and plan: table on PT improving slowly (2) UTI (urinary tract infection) Current Visit: No Status: Acute Assessment and plan: on meds will followup stable Qualifiers: Urinary tract infection type: acute cystitis Hematuria presence: with hematuria Qualified Code(s): N30.01 - Acute cystitis with hematuria (3) Hypertension Current Visit: No Status: Chronic Qualifiers: Hypertension type: unspecified Qualified Code(s): I10 - Essential (primary ) hypertension (4) Anemia Current Visit: Yes Status: Chronic Assessment and plan: no new change stable Qualifiers: Anemia type: unspecified type Qualified Code(s): D64.9 - Anemia, unspecified - Subjective Interval history: No new complains doing fine improving slowly today smiled and pleasant - Constitutional Vitals: Temp Pulse Resp BP Pulse Ox 98.3 F 69 18 140/65 92 06/18/17 07:00 06/18/17 07:00 06/18/17 07:00 06/18/17 07:00 06/18/17 07:00 General appearance: Present: A&O X 3, pleasant, obese. Absent: no acute distress, severe distress - Head Head exam: Present: atraumatic - Eye Eye exam: Present: EOMI, PERRL Pupils: Present: PERRL - Neck Neck exam general surgery: Present: supple. Absent: tenderness, nuchal rigidity - Respiratory Respiratory exam: Present: CTAB. Absent: respiratory distress, rhonchi, stridor - Cardiovascular Cardiovascular exam: Present: RRR, +S1, +S2. Absent: irregular rhythm, JVD - GI/Abdominal GI/Abdominal exam: Present: normal bowel sounds, soft. Absent: distended, guarding - Extremities Exam Extremities exam: Absent: pedal edema - Neurological Exam Neurological exam: Present: oriented X3, facial droop, speech deficit Additional comments: left side weakness no new change Internal Medicine: Result - Labs CBC & Chem 7: 06/14/17 05:15 06/14/17 05:15 - ABG Interpretation ABG results: PT/INR, D-dimer PT 12.9 Seconds (9.4-12.1) H 09/13/17 04:45 - VTE Documentation of Mechanical Device: Graduated compression elastic hosiery Consult Discharge Plan - Plan Referrals: NONE,PCP [Primary Care Provider] -
[2017-06-19] MEDS: *HR* Enoxaparin 40 MG/0.4 ML SYRINGE SQ SCH (05:13)
--- NOTE | 2017-06-19 09:48 | Internal Med Progress Note ---
Date of Encounter: 06/19/17 Time of Encounter: 09:46 - Assessment and plan (1) Acute CVA (cerebrovascular accident) Current Visit: Yes Status: Acute Assessment and plan: stable no new change in pT and is doing fine (2) UTI (urinary tract infection) Current Visit: No Status: Acute Assessment and plan: on antibiotic needs to [facility] 7 days course Qualifiers: Urinary tract infection type: acute cystitis Hematuria presence: with hematuria Qualified Code(s): N30.01 - Acute cystitis with hematuria (3) Hypertension Current Visit: No Status: Chronic Assessment and plan: stable no new change Qualifiers: Hypertension type: unspecified Qualified Code(s): I10 - Essential (primary ) hypertension (4) Anemia Current Visit: Yes Status: Chronic Assessment and plan: base line no new change on Iron Qualifiers: Anemia type: unspecified type Qualified Code(s): D64.9 - Anemia, unspecified - Subjective Interval history: doing very well no new complains no breathing issues no fever or chills - Constitutional Vitals: Temp Pulse Resp BP Pulse Ox 98.3 F 79 18 150/75 96 06/19/17 07:00 06/19/17 07:00 06/19/17 07:00 06/19/17 07:00 06/19/17 07:00 General appearance: Present: A&O X 3, pleasant, obese. Absent: no acute distress, severe distress - Eye Eye exam: Present: EOMI, PERRL Pupils: Present: PERRL - Neck Neck exam general surgery: Present: supple. Absent: tenderness, nuchal rigidity - Respiratory Respiratory exam: Present: CTAB. Absent: respiratory distress, rhonchi, stridor , wheezes, tachypnea - Cardiovascular Cardiovascular exam: Present: RRR, +S1, +S2. Absent: gallop, irregular rhythm, JVD - GI/Abdominal GI/Abdominal exam: Present: normal bowel sounds, soft. Absent: distended, firm , rebound, rigid - Neurological Exam Additional comments: no new change base line weakness as before Internal Medicine: Result - Labs CBC & Chem 7: 06/14/17 05:15 06/14/17 05:15 - ABG Interpretation ABG results: PT/INR, D-dimer PT 12.9 Seconds (9.4-12.1) H 06/02/17 04:45 - VTE Documentation of Mechanical Device: Graduated compression elastic hosiery Consult Discharge Plan - Plan Referrals: NONE,PCP [Primary Care Provider] -
[2017-06-19] MEDS: Lisinopril 20 MG TABLET PO SCH (09:59)
[2017-06-19] MEDS: Aspirin Enteric Coated 81 MG Tablet PO SCH (09:59)
[2017-06-19] MEDS: amLODIPine 5 MG TABLET PO SCH (10:00)
[2017-06-20] MEDS: *HR* Enoxaparin 40 MG/0.4 ML SYRINGE SQ SCH (06:05)
[2017-06-20] MEDS: Aspirin Enteric Coated 81 MG Tablet PO SCH (10:31)
[2017-06-20] MEDS: Lisinopril 20 MG TABLET PO SCH (10:31)
[2017-06-20] MEDS: amLODIPine 5 MG TABLET PO SCH (10:31)
[2017-06-21] MEDS: *HR* Enoxaparin 40 MG/0.4 ML SYRINGE SQ SCH (05:00)
[2017-06-21 06:40] LABS: Basophils # 0.1 K/mcL (0.0-0.2); Basophils % 1.3 %; Eosinophils # 0.3 K/mcL (0.0-0.6); Eosinophils % 5.8 %; Hematocrit 35.6 % (35.3-44.9); Immature Granulocytes % 0.7 % (0-4); Lymphocytes # 1.4 K/mcL (0.6-4.6); Lymphocytes % 25.3 %; Mean Corpuscular HGB Conc 30.9 g/dL (31.6-35.5); Mean Corpuscular Hemoglobin 25.5 pg (28.0-33.3); Mean Corpuscular Volume 82.6 fL (83.0-100.0); Mean Platelet Volume 11.2 fL (9.4-12.4); Monocytes # 0.6 K/mcL (0.0-1.3); Monocytes % 11.3 %; Neutrophils # 3.1 K/mcL (1.6-8.9); Platelet Count 297 K/mcL (140-400); Red Blood Count 4.31 M/mcL (3.82-4.97); Red Cell Distribution Width 18.9 % (11.5-14.5); Segmented Neutrophils % 55.6 %
[2017-06-21 06:46] LABS: BUN/Creatinine Ratio 25 (6-26); Blood Urea Nitrogen 21 mg/dL (7-20); Calcium 9.3 mg/dL (8.6-10.8); Carbon Dioxide 23 mEq/L (19-29); Chloride 111 mEq/L (98-109); Glucose 108 mg/dL (70-99); Osmolality,Calculated 302 (280-300); Potassium 3.9 mEq/L (3.5-4.5); Sodium 144 mEq/L (136-145); eGFR For African Americans > 60 (> 60); eGFR For Non-African Americans > 60 (> 60)
[2017-06-21] MEDS: Aspirin Enteric Coated 81 MG Tablet PO SCH (08:55)
[2017-06-21] MEDS: Lisinopril 20 MG TABLET PO SCH (08:55)
[2017-06-21] MEDS: amLODIPine 5 MG TABLET PO SCH (08:55)
[2017-06-22] MEDS: *HR* Enoxaparin 40 MG/0.4 ML SYRINGE SQ SCH (07:01)
[2017-06-22] MEDS: Aspirin Enteric Coated 81 MG Tablet PO SCH (09:45)
[2017-06-22] MEDS: amLODIPine 5 MG TABLET PO SCH (09:45)
[2017-06-22] MEDS: Lisinopril 20 MG TABLET PO SCH (09:45)
--- NOTE | 2017-06-22 13:53 | Internal Med Progress Note ---
Date of Encounter: 06/22/17 Time of Encounter: 13:52 - Assessment and plan (1) Acute CVA (cerebrovascular accident) Current Visit: Yes Status: Acute Assessment and plan: Patient's here for CVA getting appropriate rehabilitation. - Time Spent With Patient less than 15 minutes - Subjective Interval history: Patient's improving I believe I think her speech is even better this week than last CPT and OT notes cousin curious to see how much walking she is able to do or stand. - Constitutional Vitals: Temp Pulse Resp BP Pulse Ox 98.1 F 78 16 158/81 96 06/22/17 07:00 06/22/17 07:00 06/22/17 07:00 06/22/17 07:00 06/22/17 07:00 General appearance: Present: A&O X 3, pleasant, obese. Absent: no acute distress, severe distress - Head Head exam: Present: atraumatic, normal inspection, normocephalic - Neck Neck exam general surgery: Present: supple, trachea midline. Absent: lymphadenopathy - Respiratory Respiratory exam: Present: CTAB. Absent: accessory muscle use, rales, rhonchi, wheezes - Cardiovascular Cardiovascular exam: Present: RRR, +S1, +S2. Absent: diastolic murmur, gallop, rubs, systolic murmur Internal Medicine: Result - Labs CBC & Chem 7: 06/21/17 05:20 06/21/17 05:20 Labs: Lab is okay - ABG Interpretation ABG results: PT/INR, D-dimer PT 12.9 Seconds (9.4-12.1) H 06/02/17 04:45 - VTE Documentation of Mechanical Device: Graduated compression elastic hosiery Consult Discharge Plan - Plan Referrals: NONE,PCP [Primary Care Provider] -
[2017-06-23] MEDS: *HR* Enoxaparin 40 MG/0.4 ML SYRINGE SQ SCH (04:22)
[2017-06-23] MEDS: Lisinopril 20 MG TABLET PO SCH (08:32)
[2017-06-23] MEDS: amLODIPine 5 MG TABLET PO SCH (08:32)
[2017-06-23] MEDS: Aspirin Enteric Coated 81 MG Tablet PO SCH (08:32)
--- NOTE | 2017-06-23 12:33 | Physical Med Progress Note ---
Date of Encounter: 06/23/17 Time of Encounter: 12:27 Physical Medicine-PN: Subj Interval history: PMR PCC Note Patient is max A for sit to stand transfers. Patient is very fearful. She is unable to take steps due to fear. Patient is unable to coordinate movement for ambulation. Patient ambulated 6 steps in the parallel bars with max A. Patient performing lower body ADLs in bed, she is mod A for upper body dressing. She requires cues to use left upper limb. Patient has made improvement with initiating conversation. Her response time has improved. Plan for [facility] to [facility] on 06/25/17. - Constitutional Vitals: Vital Signs Temp Pulse Resp BP Pulse Ox 06/23/17 06:00 97.3 F L 82 16 145/83 97 06/22/17 18:52 97.8 F 83 15 131/53 95 Intake and Output 06/22/17 06/23/17 06/23/17 23:59 07:59 15:59 Intake Total 50 / 50 100 / 100 240 / 240 Balance 50 / 50 100 / 100 240 / 240 Intake: Oral 50 / 50 100 / 100 240 / 240 Other: Meal Breakfast Percent of Meal Consumed 100% Stool Size Moderate Moderate Stool Consistency formed formed Stool Characteristics Normal for Patient Stool Color Brown Brown # Urine Diapers 1 1 # Bowel Movement Diapers 1 Physical Medicine-PN: Obj Data - Labs CBC & Chem 7: 06/21/17 05:20 06/21/17 05:20 - ABG Interpretation ABG results: PT/INR, D-dimer PT 12.9 Seconds (9.4-12.1) H 06/02/17 04:45 - VTE Documentation of Mechanical Device: Graduated compression elastic hosiery Consult Discharge Plan - Plan Referrals: NONE,PCP [Primary Care Provider] -
[2017-06-24] MEDS: *HR* Enoxaparin 40 MG/0.4 ML SYRINGE SQ SCH (06:10)
[2017-06-24] MEDS: Lisinopril 20 MG TABLET PO SCH (08:12)
[2017-06-24] MEDS: Aspirin Enteric Coated 81 MG Tablet PO SCH (08:12)
[2017-06-24] MEDS: amLODIPine 5 MG TABLET PO SCH (08:13)
--- NOTE | 2017-06-24 13:14 | Internal Med Progress Note ---
Date of Encounter: 06/24/17 Time of Encounter: 13:12 - Assessment and plan (1) Acute CVA (cerebrovascular accident) Current Visit: Yes Status: Acute Assessment and plan: She is here for CVA for rehabilitation. In addition this wound care - Time Spent With Patient less than 15 minutes - Subjective Interval history: Patient's doing better slowly but surely cognitive is improved and wound care states that the lesions on the buttocks are improving continue the above - Constitutional Vitals: Temp Pulse Resp BP Pulse Ox 97.6 F 63 18 171/74 99 06/24/17 07:00 06/24/17 07:00 06/24/17 07:00 06/24/17 07:00 06/24/17 07:00 General appearance: Present: A&O X 3, pleasant, obese. Absent: no acute distress, severe distress - Head Head exam: Present: atraumatic, normal inspection, normocephalic - Neck Neck exam general surgery: Present: supple, trachea midline. Absent: lymphadenopathy - Respiratory Respiratory exam: Present: CTAB. Absent: accessory muscle use, rales, rhonchi, wheezes - Cardiovascular Cardiovascular exam: Present: RRR, +S1, +S2. Absent: diastolic murmur, gallop, rubs, systolic murmur Internal Medicine: Result - Labs CBC & Chem 7: 06/21/17 05:20 06/21/17 05:20 Labs: Lab is stable - ABG Interpretation ABG results: PT/INR, D-dimer PT 12.9 Seconds (9.4-12.1) H 06/02/17 04:45 - VTE Documentation of Mechanical Device: Graduated compression elastic hosiery Consult Discharge Plan - Plan Referrals: NONE,PCP [Primary Care Provider] -
[2017-06-25] MEDS: *HR* Enoxaparin 40 MG/0.4 ML SYRINGE SQ SCH (04:43)
[2017-06-25 07:24] VITALS: BP 147/105
[2017-06-25] MEDS: Lisinopril 20 MG TABLET PO SCH (08:53)
[2017-06-25] MEDS: Aspirin Enteric Coated 81 MG Tablet PO SCH (08:53)
[2017-06-25] MEDS: amLODIPine 5 MG TABLET PO SCH (08:53)
--- NOTE | 2017-06-25 14:08 | Discharge Summary ---
Date of Encounter: 06/25/17 Time of Encounter: 14:06 - Discharge Diagnosis (1) Acute CVA (cerebrovascular accident) Priority: Primary Status: Acute Comments: Will need continuing rehabilitation DC - Discharge Medications Home Medications: Aspirin Enteric Coated [Aspirin EC] 81 mg PO DAILY 06/01/17 [Rx] Atorvastatin [Lipitor] 40 mg PO HS #30 tab 06/01/17 [Rx] Ciprofloxacin [Cipro] 500 mg PO Q12HR #6 tab 06/01/17 [Rx] Docusate [Colace] 100 mg PO BID PRN 06/01/17 [Rx] Lisinopril [Zestril] 20 mg PO DAILY #30 tablet 06/01/17 [Rx] amLODIPine [Norvasc] 10 mg PO DAILY #30 tab 06/01/17 [Rx] Allergies/Adverse Reactions: 3 Allergy/AdvReac Type Severity Reaction Status Date / Time No Known Allergies Allergy Verified 05/29/17 00:47 Date of admission: 06/01/17 18:33 Primary care physician: PCP NONE Consults: 06/01/17 18:22 Consult to Occupational Therapy [CONS] Routine Comment: eval and treat Reason for Consult: CVA Consult to Physical Therapy [CONS] Routine Comment: Eval and treat Reason for Consult: CVA Consult to Recreational Therapy [CONS] Routine Comment: 06/01/17 18:26 Consult to Speech Therapy [CONS] Routine Comment: Evaluate, develop and implement POC Reason for Consult: CVA Call Completed: No 06/03/17 13:53 Consult to Wound Care [CONS] Routine Reason for Consult: open wounds Call Completed: Yes Discharging clinician: Abdiel Vásquez Anticipated date of discharge: 06/25/17 - Patient Status Disposition: Transfer SNF Condition: Fair Functional capacity at discharge: wheelchair bound Overall status at discharge: patient is not back to baseline - Discharge Instructions Follow Up With: NONE,PCP [Primary Care Provider] - - Diet and Activity Activity: as per physical therapy Interval History: Patient was sent here after CVA. She also needed care for lesions on her buttocks and is improved considerably Hospital course: Ms. Quick is a 72 year old female Patient is now conversant initially she had no verbal response syndrome and is now talking with us comfortable - Time Spent with Patient Total time spent providing and/or coordinating discharge services: Less than 30 minutes - Constitutional Vitals: Temp Pulse Resp BP Pulse Ox 98 F 101 18 147/105 97 06/25/17 07:23 06/25/17 10:54 06/25/17 10:54 06/25/17 10:54 06/25/17 10:54 General appearance: Present: A&O X 3, pleasant, obese. Absent: no acute distress, severe distress - Head Head exam: Present: atraumatic, normal inspection, normocephalic - Neck Neck exam general surgery: Present: supple, trachea midline. Absent: lymphadenopathy - Respiratory Respiratory exam: Present: CTAB. Absent: accessory muscle use, rales, rhonchi, wheezes - Cardiovascular Cardiovascular exam: Present: RRR, +S1, +S2. Absent: diastolic murmur, gallop, rubs, systolic murmur - GI/Abdominal GI/Abdominal exam: Present: normal bowel sounds, soft, no peritoneal signs. Absent: distended, tenderness - VTE Documentation of Mechanical Device: Graduated compression elastic hosiery
--- NOTE | 2017-06-25 14:11 | Physician Discharge Referral ---
ExtendedCare Referral Info Transfer To: [facility] Provider in Charge after Transfer: PCP Institutional Level of Care: Skilled - Diagnosis (1) Acute CVA (cerebrovascular accident) Priority: Primary Status: Acute Prognosis: Fair Aware of Diagnosis: Patient Aware of Prognosis: Patient - Transfer Medications Home Medications: Aspirin Enteric Coated [Aspirin EC] 81 mg PO DAILY 06/01/17 [Rx] Atorvastatin [Lipitor] 40 mg PO HS #30 tab 06/01/17 [Rx] Ciprofloxacin [Cipro] 500 mg PO Q12HR #6 tab 06/01/17 [Rx] Docusate [Colace] 100 mg PO BID PRN 06/01/17 [Rx] Lisinopril [Zestril] 20 mg PO DAILY #30 tablet 06/01/17 [Rx] amLODIPine [Norvasc] 10 mg PO DAILY #30 tab 06/01/17 [Rx] Allergies/Adverse Reactions: 3 Allergy/AdvReac Type Severity Reaction Status Date / Time No Known Allergies Allergy Verified 05/29/17 00:47 - Respiratory Orders Smoking Cessation: Smoking cessation has been advised. For more information, call the [place] Tobacco Quit Line at 1-637-OMOA-NOW. - Ancillary Orders May use pressure relief devices daily prn - Advance Directives Living Will: No Power of Matrix Worker: No Code Status: Full Code - Mobility Orders Chair - Treatments Skin tear care topically daily PRN per policy, May check for fecal impaction rectally daily PRN, Fleet enema rectally every other day PRN cleansing purposes - Diet Orders Regular CERTIFICATION: I certify that the transfer of the above named patient to an Extended Care Facility is necessary for the continuing treatment of the diagnosis listed. The above information is true and accurate reflection of patient's current condition. Patient needs continued rehabilitation for CVA currently unable to ambulate. Confidential - Redisclosure prohibited without a patient's written consent.
[2017-06-25] MEDS ORDERED: FLUARIX QUAD 2017-18 36MOS UP/PF 0.5 ML SYRINGE IM ONE (15:31)
== END 2017-06-25 19:13 | DRG 57 ==
LOC: INPGRE 18:33
PROVIDERS: ADMIT Internal Medicine; ATTEND Internal Medicine